=== PATIENT | male | born 1970 | race Caucasian/White ===

== ENCOUNTER 2016-10-26 08:23 | Day surgery (SDC) | payer OTHER, BC ==
[2016-10-26] MEDS ORDERED: LACTATED RINGERS 1,000 ML IV ONE (08:35)
[2016-10-26] MEDS ORDERED: MIDAZOLAM 2 MG/2 ML VIAL IVP ONE (11:26)
[2016-10-26] MEDS ORDERED: fentaNYL 250 MCG/5 ML VIAL IVP ONE (11:26)
== END 2016-10-26 08:24 | disposition home or self-care (01) ==
PROC: 0DBL8ZX Excision of Transverse Colon, Via Natural or Artificial Opening Endoscopic, Diagnostic (ICD-10-PCS; 2016-10-26)
PROC: 0DBK8ZX Excision of Ascending Colon, Via Natural or Artificial Opening Endoscopic, Diagnostic (ICD-10-PCS; principal; 2016-10-26 09:30)
DX: K92.2 Gastrointestinal hemorrhage, unspecified (principal); K64.8 Other hemorrhoids; D12.2 Benign neoplasm of ascending colon; D12.3 Benign neoplasm of transverse colon; Z87.891 Personal history of nicotine dependence
CPT/HCPCS: 45384; J7120

== ENCOUNTER 2017-05-13 07:23 | Outpatient (CLI) | payer OTHER, BC ==
--- NOTE | 2017-05-13 13:04 | CT Report ---
CT NECK WITH AND WITHOUT CONTRAST: 05/13/2017 CLINICAL INDICATION: Swelling, mass, lump. TECHNIQUE: Axial CT images of the neck were obtained prior to and following 100 mL Isovue-300 intravenously. Sagittal and coronal reconstructions were performed. In accordance with CT protocol optimization, one or more of the following dose reduction techniques were utilized for this exam: automated exposure control, adjustment of mA and/or KV based on patient size, or use of iterative reconstructive technique. FINDINGS: The vascular structures enhance normally. There is patchy mucosal thickening in the ethmoid air cells. No cervical lymphadenopathy is present. The salivary glands and thyroid gland appear unremarkable. A marker was placed at the site of palpable abnormality identified by the patient. There is a small lipoma, deep to the platysmus muscle at this level. No other abnormality is appreciated. No cervical adenopathy is present. Osseous structures demonstrate degenerative changes. Limited evaluation of the lung apices is unremarkable. IMPRESSION: PALPABLE ABNORMALITY IN THE LEFT ANTERIOR NECK CORRELATES WITH A SMALL LIPOMA DEEP TO THE PLATYSMUS MUSCLE. NO EVIDENCE OF CERVICAL ADENOPATHY. JOB #: [id number] EXT JOB #: [id number] MTDD
== END 2017-05-13 07:24 | disposition home or self-care (01) ==
LOC: DI 07:23
PROVIDERS: ATTEND Family Medicine
DX: D17.0 Benign lipomatous neoplasm of skin and subcutaneous tissue of head, face and neck (principal)
CPT/HCPCS: 70492

== ENCOUNTER 2019-07-19 16:00 | Outpatient (CLI) | payer BC ==
--- NOTE | 2019-07-19 16:34 | XRAY Report ---
Reason: PAIN, EDEMA Procedure Date: 07/19/2019 Accession Number: [id number] / [id number] Procedure: XRN - Foot 3 View RT CPT Code: FULL RESULT: EXAM: RIGHT FOOT RADIOGRAPHY EXAM DATE: 07/19/2019 04:14 PM. CLINICAL HISTORY: Pain, edema. COMPARISON: None. TECHNIQUE: 3 views. FINDINGS: Bones: No inferior calcaneal spurring. No fractures or bone lesions. Joints: Normal. No subluxations. Soft Tissues: Normal. No soft tissue swelling. IMPRESSION: No fracture or dislocation and no significant degenerative changes. RADIA
== END 2019-07-19 16:01 | disposition home or self-care (01) ==
LOC: DI.N 16:00
PROVIDERS: ATTEND Podiatrist
DX: M25.571 Pain in right ankle and joints of right foot (principal); M79.671 Pain in right foot

== ENCOUNTER 2019-08-10 08:26 | Outpatient (CLI) | payer BC ==
--- NOTE | 2019-08-10 12:23 | MRI Report ---
Reason: PAIN AND SWELLING Procedure Date: 08/10/2019 Accession Number: [id number] / [id number] Procedure: MRI - Foot RT W/O CPT Code: Final Report FULL RESULT: EXAM: RIGHT ANKLE/HINDFOOT MRI WITHOUT CONTRAST EXAM DATE: 08/10/2019 09:25 AM. CLINICAL HISTORY: Pain and swelling. COMPARISON: Radiographs 07/19/2019. TECHNIQUE: Multiplanar, multisequence T1-weighted and fluid-sensitive sequences of the ankle/hindfoot without contrast. Other: None. FINDINGS: Bones: No acute fracture. 0.6 cm ossific fragment at the dorsal and lateral aspect anterior process of the calcaneus. Articular Cartilage: Shallow partial-thickness cartilage loss at the tibiotalar joint. No focal defect of the talar dome. Ligaments: Mild thickening at the intact anterior and posterior tibiofibular and calcaneofibular ligaments. Moderate thickening at the anterior and posterior talofibular ligaments. Subtle edema and distortion in the deep fibers deltoid ligament and proximal aspect spring ligament. Anterior Tendons: The tibialis anterior, extensor hallucis longus, and extensor digitorum longus tendons are unremarkable. Lobulated linear ganglion insinuates superficial and deep to the extensor digitorum tendons at the level of the navicular measuring 2.1 x 0.8 x 1.9 cm AP by transverse by craniocaudal. Medial Tendons: The tibialis posterior, flexor digitorum longus, and flexor hallucis longus tendons are unremarkable. A small amount of excess fluid in the tendon sheaths. Lateral Tendons: Moderate peroneus longus and brevis tendinopathy. Longitudinal split tear of the peroneus brevis tendon extends 4.5 cm distal to the fibular tip. Achilles Tendon: The Achilles tendon is unremarkable. Musculature: No edema or fatty atrophy. Other: Minimal tibiotalar joint effusion. 0.4 cm low signal intensity filling defect in the posterior joint fluid. Minimal subtalar joint fusion. The contents of the sinus tarsi and tarsal tunnel are unremarkable. Mild thickening at the central band plantar fascia. Minimal subcutaneous edema over the peroneal tendons. IMPRESSION: 1. Moderate peroneus longus and brevis tendinopathy with longitudinal split tear peroneus brevis tendon. 2. 2.1 cm lobulated linear ganglion superficial and deep to the extensor digitorum tendons at the navicular. 3. Sequela of mild to moderate sprains medial and lateral ligamentous structures with likely partial-thickness tears deltoid and spring ligaments. 4. Mild plantar fascia thickening. 5. Likely old fracture fragment at the dorsal and lateral aspect anterior process of the calcaneus. RADIA
== END 2019-08-10 08:27 | disposition home or self-care (01) ==
LOC: DI 08:26
PROVIDERS: ATTEND Podiatrist
DX: S86.311A Strain of muscle(s) and tendon(s) of peroneal muscle group at lower leg level, right leg, initial encounter (principal); M67.971 Unspecified disorder of synovium and tendon, right ankle and foot

== ENCOUNTER 2019-11-01 06:23 | Day surgery (SDC) | payer BC ==
[~2019-11-01 06:23] MED LIST: MIDAZOLAM 2 MG/2 ML VIAL IVP ONE; PROPOFOL 200 MG/20 ML VIAL IVP ONE; fentaNYL 100 MCG/2 ML VIAL IVP ONE
[2019-11-01] MEDS ORDERED: LACTATED RINGERS 1,000 ML IV ONE (06:25)
--- NOTE | 2019-11-01 07:02 | ANESTHESIA ---
Pre-Anesthesia VS, & Labs - Diagnosis hemorrhoids, polyps - Procedure Colonoscopy Vital Signs: Temp Pulse Resp BP Pulse Ox 36.0 C L 58 L 15 154/96 H 95 11/01/19 06:37 11/01/19 06:37 11/01/19 06:37 11/01/19 06:37 11/01/19 06:37 Height 6 ft 2 in Weight (kg) 125 kg Home Medications and Allergies Home Medications: Ambulatory Orders No Known Home Medications 10/31/19 No Known Home Medications 10/31/19 Allergies/Adverse Reactions: Allergies Allergy/AdvReac Type Severity Reaction Status Date / Time No Known Drug Allergies Allergy Verified 10/31/19 10:38 Anes History & Medical History - Anesthetic History Anesthesia Complications: reports: No previous complications Family history of Anesthesia Complications: Denies Family history of Malignant Hyperthermia: Denies - Medical History Cardiovascular: reports: None Pulmonary: reports: None Gastrointestinal: reports: None, Colon polyps Urinary: reports: None Neuro: reports: None Musculoskeletal: reports: Osteoarthritis Endocrine/Autoimmune: reports: None Blood Disorders: reports: None Skin: reports: None Smoking Status: Former smoker (quit in 2012) Psychosocial: reports: Alcohol (occassional) - Surgical History General: Colonoscopy Orthopedic: Knee replacement, Spine surgery Exam General: Alert, Oriented x3, Cooperative, No acute distress Dental: WNL Mouth Openin Fingerbreadth Neck Mobility: Normal Mallampati classification: II Thyromental Distance: 4-6 cm Respiratory: Lungs clear, Normal breath sounds, No respiratory distress, No accessory muscle use Cardiovascular: Regular rate, Normal S1, Normal S2, No murmurs Abdomen: Normal bowel sounds, Soft, No tenderness, No hepatospenomegaly, No masses Extremities: No clubbing, No cyanosis, No edema, Normal pulses, No tenderness/swelling Neurological: Normal gait, Normal speech, Strength at 5/5 X4 ext, Normal tone, Sensation intact, Cranial nerves 3-12 NL, Reflexes 2+ Mental/Cognitive Status: Alert/Oriented X3, Normal for patient Cognitive Status: Within normal limits Plan Anesthesia Type: MAC Consent for Procedure(s) Verified and Reviewed: Yes Code Status: Attempt Resuscitation ASA classification: 2-Mild systemic disease Is this case an emergency?: No
[2019-11-01] MEDS ORDERED: LIDOCAINE OINTMENT 5% 35.44 GM TUBE ONE (08:57)
[2019-11-01] MEDS ORDERED: LIDOCAINE OINTMENT 5% 35.44 GM TUBE TOP ONE (08:58)
[2019-11-01 09:43] VITALS: BP 128/79
== END 2019-11-01 06:24 | disposition home or self-care (01) ==
LOC: SDS 06:23
PROVIDERS: ATTEND Surgery
PROC: 0DBL8ZZ Excision of Transverse Colon, Via Natural or Artificial Opening Endoscopic (ICD-10-PCS; 2019-11-01)
PROC: 06LY0CC Occlusion of Hemorrhoidal Plexus with Extraluminal Device, Open Approach (ICD-10-PCS; 2019-11-01)
PROC: 0DBN8ZZ Excision of Sigmoid Colon, Via Natural or Artificial Opening Endoscopic (ICD-10-PCS; principal; 2019-11-01 07:30)
PROC: 0DBM8ZZ Excision of Descending Colon, Via Natural or Artificial Opening Endoscopic (ICD-10-PCS; 2019-11-01 07:30)
DX: Z12.11 Encounter for screening for malignant neoplasm of colon (principal); D12.5 Benign neoplasm of sigmoid colon; D12.3 Benign neoplasm of transverse colon; K63.5 Polyp of colon; K64.2 Third degree hemorrhoids; K64.4 Residual hemorrhoidal skin tags; Z80.1 Family history of malignant neoplasm of trachea, bronchus and lung; Z87.891 Personal history of nicotine dependence
CPT/HCPCS: 45380; 45385; 46221; A9270; J7120